=== PATIENT | male | born 1950 | race Caucasian/White ===

== ENCOUNTER 2021-12-15 20:27 | Emergency (ER) | payer OTHER ==
[~2021-12-15] VITALS: Ht 172.7 cm; Wt 72.6 kg
--- NOTE | 2021-12-15 20:27 | NUR ---
2007-BIB [facility] VIA [employer] AND PLACED DIRECTLY IN ROOM 2A, PT WAS REGISTERED AT 2026.
[2021-12-15] MEDS ORDERED: AGGRENOX (20:39)
[2021-12-15] MEDS ORDERED: LEVO125T8 PO (20:39)
[2021-12-15] MEDS ORDERED: OMEP20TA5 PO (20:39)
[2021-12-15] MEDS ORDERED: ATOR40TA PO (20:39)
[2021-12-15] MEDS ORDERED: AMLO10TA59 PO (20:39)
--- NOTE | 2021-12-15 20:56 | NUR ---
XRAY AT BEDSIDE.
--- NOTE | 2021-12-15 22:11 | NUR ---
ASSISTED PT TO USE URINAL.
--- NOTE | 2021-12-15 22:40 | NUR ---
PT TAKEN DOWN FOR CT.
--- NOTE | 2021-12-15 23:02 | NUR ---
PT RETURNED FROM CT.
[2021-12-15] MEDS ORDERED: CYCL5TAB PO (23:48)
--- NOTE | 2021-12-16 00:15 | NUR ---
Patient does not wish to proceed with medical care recommended by Azeb Varela. Patient given information related to possible complications, up to and including , which could occur as a result of leaving the hospital at this time. Patient verbalizes understanding of risks involved due to leaving against medical advice. Patient has signed AMA form. Steady gait. Sling placed on RT arm. Accompanied by . Denies any pain/discomfort. No SOB or labored breathing. No n/v/d.
[2021-12-16 00:18] VITALS: BP 115/73
== END 2021-12-16 00:18 | disposition left against medical advice (07) ==
LOC: ER 20:30
DX: S12.601A Unspecified nondisplaced fracture of seventh cervical vertebra, initial encounter for closed fracture (principal); S22.011A Stable burst fracture of first thoracic vertebra, initial encounter for closed fracture; S22.021A Stable burst fracture of second thoracic vertebra, initial encounter for closed fracture; S42.021A Displaced fracture of shaft of right clavicle, initial encounter for closed fracture; W01.10XA Fall on same level from slipping, tripping and stumbling with subsequent striking against unspecified object, initial encounter; Y92.031 Bathroom in apartment as the place of occurrence of the external cause; Z79.02 Long term (current) use of antithrombotics/antiplatelets; Z79.899 Other long term (current) drug therapy; E78.5 Hyperlipidemia, unspecified; E11.9 Type 2 diabetes mellitus without complications; J45.909 Unspecified asthma, uncomplicated
CPT/HCPCS: 70450; 71045; 72125; 73000; 73502; A4663